=== PATIENT | male | born 1980 | race Caucasian/White ===

== ENCOUNTER 2019-12-14 20:29 | Emergency (ER) | payer OTHER, SELFPAY | END 2019-12-14 20:40 | disposition left against medical advice (07) | LOC: ER 20:37 | PROVIDERS: Emergency Provider Family Medicine; PCP Internal Medicine | DX: Z53.21 Procedure and treatment not carried out due to patient leaving prior to being seen by health care provider (principal) | CPT/HCPCS: 99281 ==